=== PATIENT | female | born 1965 | race Caucasian/White ===

== ENCOUNTER 2022-04-22 12:43 | Emergency (ER) | payer OTHER ==
[2022-04-22 13:16] VITALS: BP 110/53; PULSE 75; RESP 18; TEMP 98.2; BMI 23.0
[2022-04-22 14:40] LABS: PH,URINE 5.5 (5.0-8.0); URINE APPEARANCE CLEAR; URINE BILIRUBIN NEGATIVE (NEGATIVE); URINE COLOR YELLOW; URINE GLUCOSE (UA) NEGATIVE (NEGATIVE); URINE KETONE NEGATIVE (NEGATIVE); URINE LEUK ESTERASE NEGATIVE (NEGATIVE); URINE NITRITE NEGATIVE (NEGATIVE); URINE PROTEIN NEGATIVE (NEGATIVE); URINE UROBILINOGEN 0.2 mg/dL (0.2-1.0)
== END 2022-04-22 15:47 | disposition home or self-care (01) ==
LOC: JERFT 12:43
DX: N93.9 Abnormal uterine and vaginal bleeding, unspecified (principal)
CPT/HCPCS: 36415; 81003; 87086; 87491; 87591; 87661; 99283-25

== ENCOUNTER 2022-05-21 19:48 | Emergency (ER) | payer OTHER ==
[2022-05-21 20:03] VITALS: BP 135/75; PULSE 80; RESP 19; TEMP 98.1; BMI 24.3
[2022-05-21] MEDS ORDERED: SODIUM CHLORIDE 0.9% 500 ML INFUS.BAG IV ONE (21:49)
[2022-05-21 22:30] LABS: BASO % 0.5 % (0-2.0); EOS % 2.9 % (0-4.5); HEMATOCRIT 39.2 % (32.4-45.2); HEMOGLOBIN 13.2 GM/dL (10.7-15.3); LYMPH % 45.2 % (8-40); MCH 30.9 pg (25.7-33.7); MCHC 33.8 g/dl (32.0-36.0); MEAN CELL VOLUME 91.5 fl (80-96); MEAN PLT VOLUME 8.5 fl (7.5-11.1); MONO % 6.4 % (3.8-10.2); PLATELET COUNT 225 10^3/uL (134-434); RBC 4.28 M/mm3 (3.60-5.2); RDW 12.7 % (11.6-15.6); WHITE BLOOD COUNT 7.7 K/mm3 (4.0-10.0)
[2022-05-21 22:57] LABS: ALBUMIN 3.9 g/dl (3.4-5.0); BLOOD UREA NITROGEN 20.5 mg/dL (7-18); MAGNESIUM 2.1 mg/dL (1.8-2.4)
[2022-05-21 23:00] LABS: CREATININE 1.1 mg/dL (0.55-1.3); PHOSPHOROUS 4.1 mg/dL (2.5-4.9)
[2022-05-21 23:01] LABS: BILIRUBIN,TOTAL 0.2 mg/dL (0.2-1)
[2022-05-21 23:02] LABS: TOT PROT 7.3 g/dl (6.4-8.2)
== END 2022-05-22 02:08 | disposition home or self-care (01) ==
LOC: JER 19:48
DX: R00.2 Palpitations (principal)
CPT/HCPCS: 36415; 71045-TC-FY; 80053; 83735; 84100; 84443; 84484; 85025; 93005; 93010; 99285-25

== ENCOUNTER 2022-10-07 12:06 | Emergency (ER) | payer OTHER ==
[2022-10-07 12:17] VITALS: BP 153/85; PULSE 72; RESP 18; TEMP 98.4; BMI 24.7
== END 2022-10-07 14:58 | disposition home or self-care (01) ==
LOC: JERFT 12:06
DX: N64.4 Mastodynia (principal); M79.602 Pain in left arm; M54.9 Dorsalgia, unspecified; G89.29 Other chronic pain
CPT/HCPCS: 93005; 93010; 99283-25

== ENCOUNTER → 2022-12-13 | Day surgery (SDC) | payer OTHER | END | disposition home or self-care (01) | LOC: JRADUS-SUR 12:52 | PROVIDERS: ATTEND Registered Nurse | PROC: 0H9U3ZX Drainage of Left Breast, Percutaneous Approach, Diagnostic (ICD-10-PCS; principal; 2022-12-13) | DX: N60.12 Diffuse cystic mastopathy of left breast (principal) | CPT/HCPCS: 19083; 76642-TC-LT; 87899; 88305-TC; A4648 ==

== ENCOUNTER 2023-06-01 11:08 | Emergency (ER) | payer OTHER ==
[2023-06-01 11:26] VITALS: BP 138/58; PULSE 66; RESP 18; TEMP 97.5; BMI 24.5
[2023-06-01] MEDS ORDERED: AMOX TR/POT CLAV 875MG/125MG TABLETS (FP) ONE (12:51)
[2023-06-01] MEDS: AMOX TR/POT CLAV 875MG/125MG TABLETS (FP) PO ONE (12:54)
== END 2023-06-01 13:09 | disposition home or self-care (01) ==
LOC: JERFT 11:08 → JER 11:08 → JERFT 13:09
DX: H57.11 Ocular pain, right eye (principal); H02.841 Edema of right upper eyelid; H00.011 Hordeolum externum right upper eyelid; L03.213 Periorbital cellulitis
CPT/HCPCS: 99283-25